=== PATIENT | female | born 1985 | race Caucasian/White ===

== ENCOUNTER 2019-08-21 06:15 | Inpatient (IN) | payer BC ==
[2019-08-21] MEDS ORDERED: METHYLERGONOVINE 0.2 MG/ML 1 ML AMP IM PRN (06:47)
[2019-08-21] MEDS ORDERED: TERBUTALINE 1 MG/ML VIAL SQ PRN (06:47)
[2019-08-21] MEDS ORDERED: OXYTOCIN 10 UNIT/ML 1 ML VIAL IM PRN (06:47)
[2019-08-21] MEDS ORDERED: CARBOPROST TROMETHAMINE 250 MCG/ML 1 ML AMP IM PRN (06:47)
[2019-08-21] MEDS ORDERED: LIDOCAINE 0.5% (PF) 5 MG/ML (50 ML SDV) SQ PRN (06:47)
[2019-08-21 07:21] LABS: Basophils % (A) 0 %; Eosinophils # (A) 0.1 k/uL (0-0.7); Eosinophils % (A) 1 %; HCT 39.9 % (34.0-46.0); Lymphocytes # (A) 1.8 k/uL (1.0-4.8); Lymphocytes % (A) 18 %; MCH 32.4 pg (25.0-35.0); MCV 92.6 fL (80.0-100.0); Mean Platelet Volume 11.1; Monocytes # (A) 0.5 k/uL (0-1.0); Monocytes % (A) 4 %; Neutrophils # (A) 7.8 k/uL (1.3-7.7); Neutrophils % (A) 75 %; Platelet Count 190 k/uL (150-450); RBC 4.31 m/uL (3.80-5.40); RDW 13.1 % (11.5-15.5); WBC 10.3 k/uL (3.8-10.6)
[2019-08-21] MEDS ORDERED: OXYTOCIN 30 UNITS/500 ML NS 30 UNIT in SALINE 1 500ML.BAG IV SCH (08:00)
[2019-08-21] MEDS: LACTATED RINGERS 1,000 ML IV SCH ×2 (08:18→09:57)
[2019-08-21] MEDS ORDERED: BUTORPHANOL 1 MG/ML 1 ML VIAL IV PRN (09:20)
--- NOTE | 2019-08-21 09:24 | P.HPOB ---
History of Present Illness H&P Date: 08/21/19 Chief Complaint: 39-4/7 weeks, elective induction The patient is a 34-year-old 3 para 2 scissors or 2 admitted at 39-4/7 weeks as established by last menstrual period and confirmed by seven-week ultrasound. She is admitted for elective induction with all signs reassuring. Her has been entirely uncomplicated and group B strep status is negative. Obstetrical history: 3 para 14051 term vaginal deliveries without complications. Current statistics are listed in history present illness. EDC of 08/24/2019 was established by last menstrual period and confirmed by seven-week ultrasound. Laboratory workup done traits of blood type of B+ with a negative antibody screen. Rubella status is immune. The remainder of the laboratory workup was within normal limits. One hour Glucola was normal and group B strep status is negative. Gynecologic history: Unremarkable with no history of any infections to include STDs. Review of Systems Review of systems is confined to history of present illness. Past Medical History Past Medical History: Asthma History of Any Multi-Drug Resistant Organisms: None Reported Past Surgical History: Appendectomy Additional Past Surgical History / Comment(s): 1997 Past Anesthesia/Blood Transfusion Reactions: No Reported Reaction Past Psychological History: Anxiety Smoking Status: Former smoker - Past Family History Father Additional Family Medical History / Comment(s): neurofibromatosis Medications and Allergies Home Medications Medication Instructions Recorded Confirmed Type Albuterol Inhaler (Bulk) [Ventolin 1 inhaler INHALATION DIRECTED 09/18/13 09/18/13 History Hfa Inhaler (Bulk)] PRN Allergies Allergy/AdvReac Type Severity Reaction Status Date / Time terconazole [From Terazol 3] Allergy Vomiting Verified 09/18/13 05:51 Exam Vital Signs Temp Pulse Resp BP 08/21/19 06:46 97.1 F L 105 H 16 131/81 Intake and Output 08/20/19 08/21/19 08/21/19 22:59 06:59 14:59 Other: Weight 78.925 kg In general, this is a well-developed, well-nourished white female in no acute distress. Her heart has a regular rhythm and rate without murmur. Her lungs are clear to auscultation bilaterally in all [place]. Her abdomen is gravid, non distended, has normal active bowel sounds, is soft, nontender, and without any palpable masses aside from uterine fundus. Her extremities are without any cyanosis, clubbing, or edema and are nontender to palpation bilaterally. Digital cervical examination demonstrates her cervix to be 2+ centimeters dilated, 50% effaced, the vertex in presentation at -2 station. Artificial rupture of membranes is carried out demonstrating clear fluid. Results Result Diagrams: 08/21/19 06:55 Abnormal Lab Results - Last 24 Hours (Table) 08/21/19 Range/Units 06:55 Neutrophils # 7.8 H (1.3-7.7) k/uL Assessment and Plan (1) Term Current Visit: Yes Status: Acute Code(s): Z34.90 - ENCNTR FOR SUPRVSN OF NORMAL , UNSP, UNSP TRIMESTER SNOMED Code(s): 33429702 Plan: The patient is admitted for elective induction of labor with the understanding that this may slightly increase risk for delivery. She has had Pitocin augmentation started and undergone artificial rupture of membranes. She will have close maternal and surveillance and expectant management will be practiced. She is a good candidate for either IV or epidural analgesia, whichever she may choose.
[2019-08-21] MEDS ORDERED: diphenhydrAMINE 50 MG/ML 1 ML VIAL IVP PRN ×2 (14:25)
[2019-08-21] MEDS ORDERED: HYDROCORTISONE 2.5% RECTAL CREAM 30 GM TUBE RECTAL PRN (14:25)
[2019-08-21] MEDS ORDERED: SIMETHICONE 80 MG CHEWABLE PO PRN (14:25)
[2019-08-21] MEDS ORDERED: HYDROcodone/APAP 5-325MG 1 EACH TAB PO PRN (14:25)
[2019-08-21] MEDS ORDERED: ZOLPIDEM 5 MG TAB PO PRN (14:25)
[2019-08-21] MEDS ORDERED: WITCH HAZEL 1 EACH MED..PAD TOPICAL PRN (14:25)
[2019-08-21] MEDS ORDERED: diphenhydrAMINE 25 MG CAP PO PRN (14:25)
[2019-08-21] MEDS ORDERED: HYDROcodone/APAP 7.5-325MG 1 EACH TAB PO PRN (14:25)
[2019-08-21] MEDS ORDERED: ACETAMINOPHEN TAB 325 MG TAB PO PRN (14:25)
[2019-08-21] MEDS ORDERED: diphenhydrAMINE 50 MG CAP PO PRN (14:25)
[2019-08-21] MEDS ORDERED: BENZOCAINE/MENTHOL SPRAY 1 GM/SPRAY AEROSOL TOPICAL PRN (14:25)
--- NOTE | 2019-08-21 14:28 | P.PROBDLV ---
Vaginal Delivery Note - . Vaginal Delivery Note: The patient is a 34-year-old 3 para 2001 admitted at 39-4/7 weeks by good dating parameters. She is admitted for elective induction of labor with all signs reassuring. Her has been uncomplicated and group B strep status is negative. On labor and delivery, she had Pitocin started followed by artificial rupture of membranes demonstrating clear fluid. She had an epidural catheter placed around the onset of the active phase of labor. She thereafter progressed fairly steadily to complete and then pushed over the course of approximately 20 minutes to a normal spontaneous vaginal delivery of a viable 6 lbs. 11 oz. baby girl with Apgars of 9 at 1 minute and 9 at 5 minutes delivered in the direct occiput posterior position. The placenta was delivered spontaneously, intact, and grossly normal with a grossly normal three-vessel cord inserted approximately 1-2 cm from the margin of the placental disc. A second-degree midline episiotomy had been cut secondary to bradycardia over the last 5-6 contractions which expedited delivery on the next contraction. It was repaired in standard fashion with 3-0 chromic catgut without difficulty. Estimated blood loss for the case was approximately 100 mL. There were no complications. All sponge, instrument, and needle counts were correct. Both mother and are resting comfortably in recovery.
[2019-08-21] MEDS ORDERED: OXYTOCIN 20 UNITS/1000 ML NS 1,000 ML IV SCH (14:30)
[2019-08-21] MEDS: IBUPROFEN 600 MG TAB PO PRN ×2 (14:36→19:54)
[2019-08-21] MEDS: SENNOSIDES-DOCUSATE SODIUM 1 EACH TAB PO SCH (19:55)
[2019-08-21 20:05] VITALS: RESP 16
[2019-08-22] MEDS: IBUPROFEN 600 MG TAB PO PRN (08:42)
[2019-08-22 09:03] VITALS: BP 118/79; PULSE 81; TEMP 98.4
[2019-08-22] MEDS: SENNOSIDES-DOCUSATE SODIUM 1 EACH TAB PO SCH (10:17)
--- NOTE | 2019-08-22 14:00 | P.DS ---
Providers Date of admission: 08/21/19 06:34 Expected date of discharge: 08/22/19 Attending physician: Jaswant Dorantes Primary care physician: Stated None - Discharge Diagnosis(es) (1) Term Current Visit: Yes Status: Acute (2) Normal spontaneous vaginal delivery Current Visit: No Status: Acute Hospital Course: The patient is a 34-year-old 2002 admitted at 39-4/7 weeks for elective induction. Her has been uncomplicated and group B strep status is negative. On labor and delivery, she had Pitocin started followed by artificial rupture of membranes demonstrating clear fluid. She had an epidural catheter placed for analgesia and then progressed fairly quickly through the active phase of labor to complete. She pushed for approximately 20-25 minutes to a normal spontaneous vaginal delivery of a viable 6 lbs. 11 oz. baby girl with Apgars of 9 at 1 minute and 9 at 5 minutes. Her course was unremarkable with vital signs remaining stable and her temperature was afebrile throughout. She was deemed stable for discharge on day #1 was discharged home to follow-up in the office in 6 weeks' time routinely. Discharge instructions included calling for any significantly increased bleeding or foul-smelling lochia, significantly increased fever abdominal pain, perineal complaints, breast complaints, or anything also concerned her. She was additionally instructed to have nothing in the vagina for at least 6 weeks time to include intercourse. She understood her instructions and agrees to follow up as noted above. Discharge medications included only [id number] analgesic pain medications. Maternal blood type is B+ and rubella status is immune. Procedures: #1. Pitocin induction #2. Artificial rupture of membranes #3. Epidural analgesia #4. Normal spontaneous vaginal delivery #5. Second-degree midline episiotomy and repair Patient Condition at Discharge: Good Plan - Discharge Summary New Discharge Prescriptions: No Action Albuterol Inhaler (Mhu) [Ventolin Hfa Inhaler (Mhu)] 1 inhaler INHALATION DIRECTED PRN PRN Reason: Respiratory Distress Discharge Medication List Albuterol Inhaler (Mhu) [Ventolin Hfa Inhaler (Mhu)] 1 inhaler INHALATION DIRECTED PRN 09/18/13 [History] Follow up Appointment(s)/Referral(s): Jaswant Dorantes MD [STAFF PHYSICIAN] - 6 Weeks Discharge Disposition: HOME SELF-CARE
== END 2019-08-22 15:09 | disposition home or self-care (01) | DRG 807 ==
LOC: 4FBP 06:34
PROVIDERS: ADMIT Obstetrics & Gynecology; ATTEND Obstetrics & Gynecology
PROC: 10E0XZZ Delivery of Products of Conception, External Approach (ICD-10-PCS; principal; 2019-08-21)
PROC: 10907ZC Drainage of Amniotic Fluid, Therapeutic from Products of Conception, Via Natural or Artificial Opening (ICD-10-PCS; 2019-08-21)
PROC: 3E033VJ Introduction of Other Hormone into Peripheral Vein, Percutaneous Approach (ICD-10-PCS; 2019-08-21)
PROC: 3E0R3BZ Introduction of Anesthetic Agent into Spinal Canal, Percutaneous Approach (ICD-10-PCS; 2019-08-21)
PROC: 0W8NXZZ Division of Female Perineum, External Approach (ICD-10-PCS; 2019-08-21)
DX: O99.52 Diseases of the respiratory system complicating childbirth (principal); Z37.0 Single live birth; J45.909 Unspecified asthma, uncomplicated; O76 Abnormality in fetal heart rate and rhythm complicating labor and delivery; Z3A.39 39 weeks gestation of pregnancy; Z86.59 Personal history of other mental and behavioral disorders; Z87.891 Personal history of nicotine dependence; Z88.8 Allergy status to other drugs, medicaments and biological substances; Z82.0 Family history of epilepsy and other diseases of the nervous system
CPT/HCPCS: 85025; 86850; 86900; 86901